=== PATIENT | female | born 1960 | race Caucasian/White ===

== ENCOUNTER → 2021-07-13 | Outpatient (CLI) | payer OTHER ==
[~2021-07-13] MED LIST: ALLERGY MED PO; ASA81BEC PO; CALCIUM + VITA1 EACH PO; CLARITIN10 M3 PO; ESTRACE0.5 MG PO; GLUCOSAMINE1000 MG PO; IBUPROFEN200 M1 PO; NAPROXEN SODIU220 M2 PO; OMEGA-3 FISH1200 MG PO; OMEPRAZOLE20 M2 PO; PROBIOTIC1 EAC7 PO; TOPAMAX100 MG PO; VITAMIN B COMP1 EACH PO; XANAX 0.5 MG0.5 MG PO; ZOLOFT100 MG PO
== END ==
LOC: LAB 09:00
PROVIDERS: ATTEND Student in an Organized Health Care Education/Training Program
DX: Z01.812 Encounter for preprocedural laboratory examination (principal); Z20.822 Contact with and (suspected) exposure to COVID-19

== ENCOUNTER → 2021-07-15 | Outpatient (CLI) | payer OTHER ==
[~2021-07-15] VITALS: Ht 154.9 cm; Wt 63.5 kg
--- NOTE | 2021-07-22 08:49 | P ---
[facility] [place] [address] PROCEDURE REPORT Name: PROSPER KAUFMFAN Room #: REG DOMONIQUE MalaveCarolRylanCarol#: [id number] Admission: 07/15/21 Attend Phys: Luis Pichardo Discharge: Date of : 64 Report #: [id number] THIS REPORT FOR: cc: Alice Fernandez Leah D. McElhinney, Christian C. MD ~ cc: Arti Pulido MD DATE OF SERVICE: 07/15/2021 PROCEDURE PERFORMED: Upper endoscopy with biopsies. HISTORY OF PRESENT ILLNESS: The patient is a 60-year-old female with a history of intermittent crampy abdominal pain. This can be both mid epigastric and lower abdomen, typically occurring most days, began taking Prilosec several years ago for mild heartburn symptoms. She denies any dysphagia. She does report some mild nausea, but denies any emesis. Her weight has been stable. She also reports chronic diarrhea, typically 4 stools per day. She denies any blood in her stools. Plan is for EGD and colonoscopy today. DESCRIPTION OF PROCEDURE: The risks and benefits of the procedure were explained to the patient, those risks including but not limited to bleeding, perforation and the risk of sedation. She understood these risks and gave informed consent. Sedation was given using propofol per anesthesia. Next, using a standard Olympus upper endoscope, the scope was placed in the patient's mouth and advanced under direct vision through the esophagus, stomach and into the second portion of the duodenum. The larynx was normal in appearance. The esophagus was normal throughout. The GE junction was normal. There was a mild gastritis in the mid body and antrum of the stomach. No evidence of ulcerations or erosions. Biopsies were obtained to rule out H. pylori. The pylorus was normal and patent. The duodenal bulb, first and second portion were all normal. Random biopsies were also obtained to rule out the possibility of celiac sprue. The scope was then withdrawn and the procedure terminated. The patient tolerated the procedure well. IMPRESSION: 1. Mild gastritis. 2. Otherwise, normal upper endoscopy. RECOMMENDATIONS: 1. Await biopsy results. 2. Continue PPI therapy. 3. We will proceed with colonoscopy next today. [address] [address] PROCEDURE REPORT Name: PROSPER KAUFFMAN Room #: REG DOMONIQUE Reddy#: [id number] Admission: 07/15/21 Attend Phys: Luis Pichardo Discharge: Date of : 64 Report #: [id number] Thank you for allowing me to participate in her care. <ELECTRONICALLY SIGNED> By: Luis Flores MD 07/22/21 0849 [id number] 0929 Luis Flores MD /nt
--- NOTE | 2021-07-22 08:49 | P ---
[facility] [address] PROCEDURE REPORT Name: PROSPER KAUFFMAN Room #: REG [id number] Admission: 07/15/21 Attend Phys: Luis Pichardo Discharge: Date of : 64 Report #: [id number] THIS REPORT FOR: cc: Alice Fernandez Leah D. McElhinney, Christian C. MD ~ cc: Arti Pulido MD DATE OF SERVICE: 07/15/2021 PROCEDURE PERFORMED: Colonoscopy with biopsies. HISTORY OF PRESENT ILLNESS: The patient is a 60-year-old female who reports intermittent crampy abdominal pain, diarrhea, loose stools, usually averaging 3-4 per day. She denies any blood in her stools. There is a family history of colon cancer in her grandmother as well as Crohn's disease. Her weight has been stable. Plan is for colonoscopy. DESCRIPTION OF PROCEDURE: The risks and benefits of the procedure were explained to the patient, those risks including but not limited to bleeding, perforation and the risk of sedation. She understood these risks and gave informed consent. Sedation was given using propofol per Anesthesia. Next, a digital rectal exam was initially performed, which was normal. Next, using a standard Olympus colonoscope, the scope was placed in the patient's anus and advanced under direct vision to the cecum. The overall prep was excellent. The cecum and ileocecal valve were normal in appearance. Terminal ileum was intubated and normal in appearance. The ascending, transverse, descending and sigmoid colon were all normal. Random biopsies were obtained to rule out the possibility of microscopic colitis. The rectal mucosa was normal. On retroflexion, no abnormalities were noted. The scope was then withdrawn and the procedure terminated. The patient tolerated the procedure well. IMPRESSION: Normal colonoscopy. RECOMMENDATIONS: 1. Await biopsy results. 2. We will start Levsin on a p.r.n. basis. 3. Repeat colonoscopy in 5 years due to family history. Thank you for allowing me to participate in her care. <ELECTRONICALLY SIGNED> By: Luis Flores MD 07/22/21 0849 [id number] 0950 Luis Flores MD /nt
--- NOTE | 2021-07-29 10:55 | PATH ---
[facility] [place] [address] PATHOLOGY RPT PROCEDURE Name: PROSPER KAUFFMAN Room #: REG [facility].#: [id number] Admission: 07/15/21 Date of : 64 Discharge: Report #: [id number] Path Case #: [id number] [facility] Accession Number: [id number] . 01 Material submitted: . PART A: duodenum - DUODENUM BIOPSY RULE OUT CELIAC DISEASE PART B: stomach - GASTRIC GASTRITIS RULE OUT H. PYLORI. Modifiers: GASTRIC PART C: colon - RANDOM COLON BIOPSY . 01 Clinical history: . EGD/COLONOSCOPY EGD EPIGASTRIC PAIN, ABDOMINAL PAIN, DIARRHEA GASTRITIS . 02 Diagnosis: A. Duodenum, biopsy: - Small bowel mucosa with preserved villous morphology. - Negative for celiac disease, peptic duodenitis or giardiasis. . B. Gastric, endoscopic biopsy: - Gastric antral mucosa with chronic inactive gastritis. - H. pylori-like organism on immunohistochemical stain is negative. . C. Random colon, biopsy: - Colonic mucosa with mild increase in intraepithelial and crypt lymphocytes. See comment. . (ANK:verito; 07/16/2021) JOSÉ MIGUELM 07/16/2021 1328 Local . 02 Comment: C. Findings may be nonspecific or may be related to early microscopic colitis. Features of inflammatory bowel disease or infectious etiology is not identified. . (ANK:verito; 07/16/2021) . 02 Electronically signed: . Talya Becerril MD, Pathologist NPI- [id number] . 01 Gross description: . A. The specimen is received in formalin, labeled "Denalexander, Prosper, duodenum biopsy, rule out celiac disease". Received are 4 segments of pale-elliott tissue ranging in size from 0.3-0.4 cm in maximum dimensions. The specimen is entirely submitted in cassette A1. [address] [address] PATHOLOGY RPT PROCEDURE Name: DALYPROSPER A Room #: REG CLI [facility]#: [id number] Admission: 07/15/21 Date of : 64 Discharge: Report #: [id number] Path Case #: [id number] . B. The specimen is received in formalin, labeled "Denight, Prosper, gastric, gastritis, rule out H. pylori". Received are 3 segments of pale-elliott tissue ranging in size from 0.4 to 0.5 cm in maximum dimensions. The specimen is entirely submitted in cassette B1. . C. The specimen is received in formalin, labeled "Denight, Prosper, random colon biopsy". Received are 4 segments of pale-elliott tissue ranging in size from 0.3-0.4 cm in maximum dimensions. The specimen is entirely submitted in cassette C1. ([facility]; 07/15/2021) NRI/NRI 07/15/20212 Local . 02 Pathologist provided ICD-10: K29.50, Z12.11, R10.13, R10.9, R19.7 . 02 CPT . 189715, [id number], [id number], [id number] Performed at: [address], [place] [id number] MD Rubén Rodriguez MD Phone: [phone] Performed at: [address] [id number] MD Talay Becerril MD Phone: [phone]
== END | disposition home or self-care (01) ==
LOC: GI 08:19
PROVIDERS: ATTEND Specialist
DX: K52.9 Noninfective gastroenteritis and colitis, unspecified (principal); K29.50 Unspecified chronic gastritis without bleeding; R10.9 Unspecified abdominal pain; R11.0 Nausea; J45.909 Unspecified asthma, uncomplicated; F32.9 Major depressive disorder, single episode, unspecified; F41.9 Anxiety disorder, unspecified; Z80.0 Family history of malignant neoplasm of digestive organs; Z98.890 Other specified postprocedural states; Z79.899 Other long term (current) drug therapy
CPT/HCPCS: 62110; 62900